=== PATIENT | female | born 1945 | race Two or more races ===

== ENCOUNTER 2023-02-01 22:55 | Inpatient (IN) | payer MEDICARE, OTHER ==
[~2023-02-01] VITALS: Ht 157.5 cm; Wt 47.2 kg
[~2023-02-01 22:55] MED LIST: ACET325T53 PO; ALBUT2 CONTNEB; AMIN887L PO; AMLO10TA4 PO; APIX5TAB PO; CHOL200013 PO; CYAN10006 IJ; DOCU-141 PO; FOLI0.4T6 PO; FURO-145 PO; HYDR-3980 PO; LATA2.5D15 EACHEYE; METO50TA16 PO; MIRT-90 PO; MULT-439 PO; NETA2.5D EACHEYE; PHEN100C4 PO; PILO15DR7 EACHEYE
[2023-02-01] MEDS ORDERED: ALBUTEROL FS 2.5 MG/0.5 ML VIAL.NEB NEB ONE (23:30)
[2023-02-01] MEDS ORDERED: ALBUTEROL FS 2.5 MG/0.5 ML VIAL.NEB ONE (23:56)
[2023-02-01 23:57] VITALS: O2SAT 91
[2023-02-02 00:07] VITALS: O2SAT 98
[2023-02-02] MEDS ORDERED: CEFTRIAXONE 1GM BAG (ER ONLY) 1 GM/50 ML PIGGYBACK IV ONE (01:30)
[2023-02-02] MEDS ORDERED: AZITHROMYCIN 500 MG in IV D5W 250 ML IV ONE (01:30)
[2023-02-02] MEDS ORDERED: AZITHROMYCIN 500 MG VIAL ONE ×2 (01:41→02:07)
[2023-02-02] MEDS ORDERED: CEFTRIAXONE 1GM BAG (ER ONLY) 50 ML IV ONE (01:41)
[2023-02-02 01:55] LABS: BASOPHILS # (AUTO) 0.1 K/uL (0.0-0.2); BASOPHILS % (AUTO) 0.5 % (0.0-2.0); EOSINOPHILS % (AUTO) 0.1 % (0.0-6.0); HEMATOCRIT 42 % (33-45); HEMOGLOBIN 14.3 g/dL (11.5-14.8); LYMPHOCYTES % (AUTO) 4.4 % (20.0-44.0); MEAN CORPUSCULAR HGB CONC 34 g/dl (31.0-36.0); MEAN CORPUSCULAR VOLUME 97 fL (82-100); MONOCYTES % (AUTO) 4.7 % (2.0-12.0); NEUTROPHILS # (AUTO) 19.8 K/uL (1.8-8.9); NEUTROPHILS % (AUTO) 90.3 % (43.0-81.0); PLATELET COUNT (AUTO) 524 K/uL (150-450); RED BLOOD CELL COUNT(AUTO) 4.38 MIL/uL (4.0-5.2); WHITE BLOOD COUNT (AUTO) 21.9 K/uL (4.3-11.0)
[2023-02-02 02:04] LABS: CALCIUM, SERUM 9.1 mg/dL (8.5-10.1); CARBON DIOXIDE 28 mmol/L (21-32); CHLORIDE 108 mmol/L (98-107); CREATININE 0.6 mg/dL (0.6-1.3); GLUCOSE 183 mg/dL (74-106); POTASSIUM 3.2 mmol/L (3.5-5.1); SODIUM SERUM 145 mmol/L (136-145); UREA NITROGEN, BLOOD 16 mg/dL (7-18)
[2023-02-02] MEDS ORDERED: ONDANSETRON HCL/PF 4 MG/2 ML VIAL IVP PRN (05:00)
[2023-02-02] MEDS ORDERED: ALBUTEROL FS 2.5 MG/0.5 ML VIAL.NEB NEB PRN (05:00)
[2023-02-02] MEDS ORDERED: ACETAMINOPHEN 325 MG TABLET PO PRN (05:00)
[2023-02-02] MEDS ORDERED: hydrALAZINE HCL IV 20 MG VIAL IV PRN (05:00)
[2023-02-02] MEDS ORDERED: MORPHINE SULFATE INJ 2 MG/ML DISP.SYRIN IV PRN (05:00)
[2023-02-02] MEDS ORDERED: IPRATROPIUM/ALBUTEROL INHALER IH SCH (06:00)
[2023-02-02] MEDS ORDERED: HEPARIN SODIUM, PORCINE 5000 UNITS/1 ML VIAL SQ SCH (09:00)
[2023-02-02] MEDS: PILOCARPINE 2% OPTH DROP 15 ML BOTTLE EACHEYE SCH ×2 (09:41→17:35)
[2023-02-02] MEDS: DOCUSATE SODIUM 100 MG CAPSULE PO SCH (09:55)
[2023-02-02] MEDS: FUROSEMIDE 20 MG TABLET PO SCH (09:57)
[2023-02-02] MEDS: METOPROLOL TARTRATE 50 MG TABLET PO SCH ×2 (09:57→16:27)
[2023-02-02] MEDS: AMLODIPINE BESYLATE 10 MG TABLET PO SCH (09:57)
[2023-02-02] MEDS: CEFEPIME 2 GM in IV D5W 100 ML IV SCH ×2 (10:24→21:41)
[2023-02-02] MEDS: POTASSIUM CHLORIDE 20 MEQ TAB.PRT.SR PO SCH ×2 (10:28→11:03)
[2023-02-02] MEDS: APIXABAN 5 MG TABLET PO SCH ×2 (11:08→16:32)
[2023-02-02] MEDS: IPRATROPIUM NEB FS 0.5 MG/2.5 ML AMPUL.NEB NEB SCH ×2 (13:30→19:56)
[2023-02-02] MEDS: ALBUTEROL FS 2.5 MG/0.5 ML VIAL.NEB NEB SCH ×2 (13:30→19:56)
[2023-02-02 16:00] VITALS: BP 128/67; TEMP 98.5; O2SAT 99
[2023-02-02 19:59] VITALS: O2SAT 93
[2023-02-02 20:00] VITALS: BP 131/70; TEMP 98; O2SAT 98
[2023-02-02 20:10] VITALS: O2SAT 98
[2023-02-02] MEDS ORDERED: VANCOMYCIN 1 GM in IV D5W 250ml IV ONE (21:00)
[2023-02-02] MEDS: LATANOPROST EYE DROP 0.005% 2.5 ML BOTTLE EACHEYE SCH (21:41)
[2023-02-02] MEDS: MIRTAZAPINE 15 MG TABLET PO SCH (21:41)
[2023-02-02] MEDS ORDERED: PHENYTOIN EXTENDED RELEASE 100 MG CAPSULE PO SCH (22:00)
[2023-02-02] MEDS: CLOTRIMAZOLE/BETAMETASONE DIPROPIONATE 15 GM TUBE TP SCH (22:00)
[2023-02-02] MEDS ORDERED: Medication Not On Formulary EA (Netarsudil Mesylate (Rhopressa) 1 DROP) EACHEYE SCH (22:00)
[2023-02-03] VITALS (13 sets, daily range): BP systolic 124–158; BP diastolic 64–78; TEMP 97.6–98.7; O2SAT 81–100
[2023-02-03] MEDS ORDERED: CEFTRIAXONE 1 G in IV D5W 50 ML IV SCH (01:00)
[2023-02-03] MEDS: ALBUTEROL FS 2.5 MG/0.5 ML VIAL.NEB NEB SCH ×4 (01:21→19:46)
[2023-02-03] MEDS: IPRATROPIUM NEB FS 0.5 MG/2.5 ML AMPUL.NEB NEB SCH ×4 (01:21→19:46)
[2023-02-03] MEDS ORDERED: AZITHROMYCIN 500 MG in IV D5W 250 ML IV SCH (02:00)
[2023-02-03 05:49] LABS: BASOPHILS # (AUTO) 0.1 K/uL (0.0-0.2); BASOPHILS % (AUTO) 0.2 % (0.0-2.0); HEMATOCRIT 43 % (33-45); HEMOGLOBIN 13.9 g/dL (11.5-14.8); LYMPHOCYTES # (AUTO) 1.8 K/uL (0.8-4.8); LYMPHOCYTES % (AUTO) 6.1 % (20.0-44.0); MEAN CORPUSCULAR HGB CONC 33 g/dl (31.0-36.0); MEAN CORPUSCULAR VOLUME 98 fL (82-100); MONOCYTES # (AUTO) 1.7 K/uL (0.1-1.30); MONOCYTES % (AUTO) 5.9 % (2.0-12.0); NEUTROPHILS # (AUTO) 25.2 K/uL (1.8-8.9); NEUTROPHILS % (AUTO) 87.8 % (43.0-81.0); PLATELET COUNT (AUTO) 452 K/uL (150-450); RED BLOOD CELL COUNT(AUTO) 4.32 MIL/uL (4.0-5.2); WHITE BLOOD COUNT (AUTO) 28.7 K/uL (4.3-11.0)
[2023-02-03 06:26] LABS: ALBUMIN 2.6 g/dL (3.4-5.0); BILIRUBIN,TOTAL 0.6 mg/dL (0.2-1.0); CALCIUM, SERUM 9.5 mg/dL (8.5-10.1); CREATININE 0.7 mg/dL (0.6-1.3); MAGNESIUM 2.2 mg/dL (1.8-2.4); POTASSIUM 3.4 mmol/L (3.5-5.1); TOTAL PROTEIN, SERUM 8.4 g/dL (6.4-8.2)
[2023-02-03] MEDS: PILOCARPINE 2% OPTH DROP 15 ML BOTTLE EACHEYE SCH ×2 (08:08→16:02)
[2023-02-03] MEDS: CEFEPIME 2 GM in IV D5W 100 ML IV SCH ×2 (08:09→20:12)
[2023-02-03] MEDS: FUROSEMIDE 20 MG TABLET PO SCH (09:00)
[2023-02-03] MEDS: APIXABAN 5 MG TABLET PO SCH (09:00)
[2023-02-03] MEDS: DOCUSATE SODIUM 100 MG CAPSULE PO SCH (09:00)
[2023-02-03] MEDS: AMLODIPINE BESYLATE 10 MG TABLET PO SCH (09:00)
[2023-02-03] MEDS: METOPROLOL TARTRATE 50 MG TABLET PO SCH ×2 (09:00→16:02)
[2023-02-03] MEDS: VANCOMYCIN 500 MG in IV D5W 100ml IV SCH ×2 (09:53→21:15)
[2023-02-03] MEDS: CLOTRIMAZOLE/BETAMETASONE DIPROPIONATE 15 GM TUBE TP SCH ×2 (09:53→16:02)
[2023-02-03 12:09] LABS: ABG BASE EXCESS 1.7 mmol/L; ABG OXYGEN SATURATION 98.5 % (92.0-98.5); ABG PCO2 38.3 mmHg (35.0-45.0); ABG PH 7.444 (7.350-7.450); ABG PO2 126.1 mmHg (75.0-100.0); AaDO2 259.6 mmHg; COHb 0.5 % (0.5-1.5); MetHb 0.4 % (0.0-1.5); O2Hb 97.6 % (94.0-97.0); SITE, ABG Right Radial
[2023-02-03] MEDS: POTASSIUM CL. PREMIX PERIPHER. 50 ML IV SCH ×2 (13:25→14:08)
[2023-02-03 13:56] LABS: BASOPHILS % (MANUAL) 0 % (0.0-2.0); EOSINOPHILS % (MANUAL) 1 % (0-4); LYMPHOCYTES % (MANUAL) 8 % (16-48); MONOCYTES % (MANUAL) 6 % (0-11.0); NEUTROPHILS % (MANUAL) 85 (42-76)
[2023-02-03] MEDS: ENOXAPARIN SODIUM 40 MG/0.4 ML DISP.SYRIN SQ SCH (14:57)
[2023-02-03] MEDS: LATANOPROST EYE DROP 0.005% 2.5 ML BOTTLE EACHEYE SCH (21:17)
[2023-02-03] MEDS: MIRTAZAPINE 15 MG TABLET PO SCH (21:17)
[2023-02-03] MEDS: IV D5/ 0.9% NACL 1,000 ML IV PRN (21:59)
[2023-02-04] VITALS (13 sets, daily range): BP systolic 133–153; BP diastolic 70–79; TEMP 97.4–98.5; O2SAT 96–100
[2023-02-04] MEDS: ALBUTEROL FS 2.5 MG/0.5 ML VIAL.NEB NEB SCH ×4 (01:55→20:37)
[2023-02-04] MEDS: IPRATROPIUM NEB FS 0.5 MG/2.5 ML AMPUL.NEB NEB SCH ×4 (01:55→20:37)
[2023-02-04] MEDS: ENOXAPARIN SODIUM 40 MG/0.4 ML DISP.SYRIN SQ SCH ×2 (03:29→14:47)
[2023-02-04] MEDS: DOCUSATE SODIUM 100 MG CAPSULE PO SCH (09:00)
[2023-02-04] MEDS: METOPROLOL TARTRATE 50 MG TABLET PO SCH ×2 (09:00→17:00)
[2023-02-04] MEDS: VANCOMYCIN 500 MG in IV D5W 100ml IV SCH (09:00)
[2023-02-04 09:07] LABS: BASOPHILS % (AUTO) 0.2 % (0.0-2.0); EOSINOPHILS % (AUTO) 0.5 % (0.0-6.0); HEMATOCRIT 43 % (33-45); HEMOGLOBIN 13.8 g/dL (11.5-14.8); LYMPHOCYTES # (AUTO) 1.6 K/uL (0.8-4.8); MEAN CORPUSCULAR HGB CONC 32 g/dl (31.0-36.0); MEAN CORPUSCULAR VOLUME 100 fL (82-100); MONOCYTES # (AUTO) 0.6 K/uL (0.1-1.30); MONOCYTES % (AUTO) 3.5 % (2.0-12.0); NEUTROPHILS # (AUTO) 15.5 K/uL (1.8-8.9); NEUTROPHILS % (AUTO) 86.8 % (43.0-81.0); PLATELET COUNT (AUTO) 394 K/uL (150-450); RED BLOOD CELL COUNT(AUTO) 4.28 MIL/uL (4.0-5.2); WHITE BLOOD COUNT (AUTO) 17.8 K/uL (4.3-11.0)
[2023-02-04] MEDS: CLOTRIMAZOLE/BETAMETASONE DIPROPIONATE 15 GM TUBE TP SCH ×2 (09:13→17:08)
[2023-02-04] MEDS: CEFEPIME 2 GM in IV D5W 100 ML IV SCH ×2 (09:13→21:10)
[2023-02-04 09:20] LABS: CALCIUM, SERUM 9.5 mg/dL (8.5-10.1); CREATININE 0.6 mg/dL (0.6-1.3)
[2023-02-04] MEDS: PILOCARPINE 2% OPTH DROP 15 ML BOTTLE EACHEYE SCH ×2 (09:23→17:08)
[2023-02-04] MEDS: IV D5/ 0.9% NACL 1,000 ML IV PRN (18:36)
[2023-02-04] MEDS: LATANOPROST EYE DROP 0.005% 2.5 ML BOTTLE EACHEYE SCH (21:11)
[2023-02-04] MEDS: MIRTAZAPINE 15 MG TABLET PO SCH (21:11)
[2023-02-05] VITALS (12 sets, daily range): BP systolic 141–154; BP diastolic 53–74; TEMP 97.5–97.9; O2SAT 95–100
[2023-02-05] MEDS: IPRATROPIUM NEB FS 0.5 MG/2.5 ML AMPUL.NEB NEB SCH ×4 (01:00→20:12)
[2023-02-05] MEDS: ALBUTEROL FS 2.5 MG/0.5 ML VIAL.NEB NEB SCH ×4 (01:00→20:12)
[2023-02-05] MEDS: ENOXAPARIN SODIUM 40 MG/0.4 ML DISP.SYRIN SQ SCH ×2 (02:48→14:52)
[2023-02-05] MEDS: VANCOMYCIN 500 MG in IV D5W 100ml IV SCH (08:00)
[2023-02-05] MEDS: METOPROLOL TARTRATE 50 MG TABLET PO SCH ×2 (08:08→17:00)
[2023-02-05] MEDS: DOCUSATE SODIUM 100 MG CAPSULE PO SCH (08:08)
[2023-02-05] MEDS: CLOTRIMAZOLE/BETAMETASONE DIPROPIONATE 15 GM TUBE TP SCH ×2 (08:09→17:03)
[2023-02-05] MEDS: PILOCARPINE 2% OPTH DROP 15 ML BOTTLE EACHEYE SCH ×2 (08:09→17:03)
[2023-02-05] MEDS: CEFEPIME 2 GM in IV D5W 100 ML IV SCH ×2 (09:09→20:13)
[2023-02-05 12:17] LABS: CALCIUM, SERUM 9.2 mg/dL (8.5-10.1); CARBON DIOXIDE 20 mmol/L (21-32); CHLORIDE 113 mmol/L (98-107); CREATININE 0.5 mg/dL (0.6-1.3); GLUCOSE 115 mg/dL (74-106); POTASSIUM 3.6 mmol/L (3.5-5.1); SODIUM SERUM 146 mmol/L (136-145); UREA NITROGEN, BLOOD 31 mg/dL (7-18)
[2023-02-05] MEDS: IV D5/ 0.9% NACL 1,000 ML IV PRN (15:23)
[2023-02-05] MEDS: MIRTAZAPINE 15 MG TABLET PO SCH (21:18)
[2023-02-05] MEDS: LATANOPROST EYE DROP 0.005% 2.5 ML BOTTLE EACHEYE SCH (21:18)
[2023-02-06] VITALS (12 sets, daily range): BP systolic 120–154; BP diastolic 51–74; TEMP 97.3–97.8; O2SAT 97–100
[2023-02-06] MEDS: IPRATROPIUM NEB FS 0.5 MG/2.5 ML AMPUL.NEB NEB SCH ×4 (01:49→20:09)
[2023-02-06] MEDS: ALBUTEROL FS 2.5 MG/0.5 ML VIAL.NEB NEB SCH ×4 (01:49→20:09)
[2023-02-06] MEDS: ENOXAPARIN SODIUM 40 MG/0.4 ML DISP.SYRIN SQ SCH ×2 (02:28→14:28)
[2023-02-06] MEDS: PILOCARPINE 2% OPTH DROP 15 ML BOTTLE EACHEYE SCH ×2 (08:33→16:28)
[2023-02-06] MEDS: VANCOMYCIN 500 MG in IV D5W 100ml IV SCH (08:34)
[2023-02-06] MEDS: CLOTRIMAZOLE/BETAMETASONE DIPROPIONATE 15 GM TUBE TP SCH ×2 (08:34→16:29)
[2023-02-06] MEDS: METOPROLOL TARTRATE 50 MG TABLET PO SCH ×2 (08:48→16:26)
[2023-02-06] MEDS: DOCUSATE SODIUM 100 MG CAPSULE PO SCH (08:48)
[2023-02-06 09:34] LABS: CALCIUM, SERUM 9.1 mg/dL (8.5-10.1); CARBON DIOXIDE 22 mmol/L (21-32); CHLORIDE 115 mmol/L (98-107); CREATININE 0.5 mg/dL (0.6-1.3); GLUCOSE 100 mg/dL (74-106); SODIUM SERUM 150 mmol/L (136-145); UREA NITROGEN, BLOOD 18 mg/dL (7-18)
[2023-02-06 09:36] LABS: POTASSIUM 2.6 mmol/L (3.5-5.1)
[2023-02-06] MEDS: CEFEPIME 2 GM in IV D5W 100 ML IV SCH ×2 (09:53→21:12)
[2023-02-06] MEDS: IV D5/ 0.9% NACL 1,000 ML IV PRN (15:59)
[2023-02-06] MEDS: POTASSIUM CL. PREMIX PERIPHER. 50 ML IV SCH ×6 (16:08→22:05)
[2023-02-06] MEDS: MIRTAZAPINE 15 MG TABLET PO SCH ×2 (22:00→22:10)
[2023-02-06] MEDS: LATANOPROST EYE DROP 0.005% 2.5 ML BOTTLE EACHEYE SCH (22:10)
[2023-02-07] VITALS (12 sets, daily range): BP systolic 104–139; BP diastolic 52–58; TEMP 97.6–98.4; O2SAT 95–100
[2023-02-07] MEDS: ALBUTEROL FS 2.5 MG/0.5 ML VIAL.NEB NEB SCH ×4 (02:14→20:09)
[2023-02-07] MEDS: IPRATROPIUM NEB FS 0.5 MG/2.5 ML AMPUL.NEB NEB SCH ×4 (02:15→20:09)
[2023-02-07] MEDS: ENOXAPARIN SODIUM 40 MG/0.4 ML DISP.SYRIN SQ SCH ×2 (03:07→15:45)
[2023-02-07 07:25] LABS: CALCIUM, SERUM 8.9 mg/dL (8.5-10.1); CARBON DIOXIDE 20 mmol/L (21-32); CHLORIDE 118 mmol/L (98-107); CREATININE 0.4 mg/dL (0.6-1.3); GLUCOSE 118 mg/dL (74-106); POTASSIUM 3.4 mmol/L (3.5-5.1); SODIUM SERUM 147 mmol/L (136-145); UREA NITROGEN, BLOOD 16 mg/dL (7-18)
[2023-02-07] MEDS: VANCOMYCIN 500 MG in IV D5W 100ml IV SCH (07:58)
[2023-02-07] MEDS: DOCUSATE SODIUM 100 MG CAPSULE PO SCH (08:21)
[2023-02-07] MEDS: METOPROLOL TARTRATE 50 MG TABLET PO SCH ×2 (09:00→17:00)
[2023-02-07] MEDS: CEFEPIME 2 GM in IV D5W 100 ML IV SCH ×2 (09:25→20:14)
[2023-02-07] MEDS: CLOTRIMAZOLE/BETAMETASONE DIPROPIONATE 15 GM TUBE TP SCH ×2 (09:29→17:06)
[2023-02-07] MEDS: PILOCARPINE 2% OPTH DROP 15 ML BOTTLE EACHEYE SCH ×2 (09:29→17:23)
[2023-02-07] MEDS ORDERED: IV D5W 1,000 ML IV SCH (10:00)
[2023-02-07] MEDS: POTASSIUM CL. PREMIX PERIPHER. 50 ML IV SCH ×4 (10:07→13:58)
[2023-02-07] MEDS ORDERED: POTASSIUM CL. PREMIX PERIPHER. 50 ML IV SCH (10:30)
[2023-02-07] MEDS: IV D5W 1,000 ML IV PRN (10:47)
[2023-02-07] MEDS: HYDROCORTISONE 1% CREAM 28.35 GM TUBE TP SCH ×2 (17:00→17:06)
[2023-02-07] MEDS: LATANOPROST EYE DROP 0.005% 2.5 ML BOTTLE EACHEYE SCH (22:59)
[2023-02-07] MEDS: MIRTAZAPINE 15 MG TABLET PO SCH (22:59)
[2023-02-08] VITALS (9 sets, daily range): BP systolic 111–119; BP diastolic 55–62; TEMP 97.3–98.8; O2SAT 96–100
[2023-02-08] MEDS: IPRATROPIUM NEB FS 0.5 MG/2.5 ML AMPUL.NEB NEB SCH ×3 (01:46→14:08)
[2023-02-08] MEDS: ALBUTEROL FS 2.5 MG/0.5 ML VIAL.NEB NEB SCH ×3 (01:46→14:08)
[2023-02-08] MEDS: IV D5W 1,000 ML IV PRN (02:53)
[2023-02-08] MEDS: ENOXAPARIN SODIUM 40 MG/0.4 ML DISP.SYRIN SQ SCH ×2 (03:14→16:26)
[2023-02-08] MEDS: CEFEPIME 2 GM in IV D5W 100 ML IV SCH (05:08)
[2023-02-08] MEDS ORDERED: POTASSIUM CHLORIDE 20 MEQ TAB.PRT.SR PO ONE (07:30)
[2023-02-08 08:28] LABS: BASOPHILS # (AUTO) 0.1 K/uL (0.0-0.2); BASOPHILS % (AUTO) 0.9 % (0.0-2.0); EOSINOPHILS % (AUTO) 3.7 % (0.0-6.0); HEMATOCRIT 34 % (33-45); HEMOGLOBIN 11.7 g/dL (11.5-14.8); LYMPHOCYTES # (AUTO) 1.8 K/uL (0.8-4.8); LYMPHOCYTES % (AUTO) 21.6 % (20.0-44.0); MEAN CORPUSCULAR HGB CONC 34 g/dl (31.0-36.0); MEAN CORPUSCULAR VOLUME 97 fL (82-100); MONOCYTES # (AUTO) 0.8 K/uL (0.1-1.30); MONOCYTES % (AUTO) 9.2 % (2.0-12.0); NEUTROPHILS # (AUTO) 5.3 K/uL (1.8-8.9); NEUTROPHILS % (AUTO) 64.6 % (43.0-81.0); PLATELET COUNT (AUTO) 311 K/uL (150-450); RED BLOOD CELL COUNT(AUTO) 3.54 MIL/uL (4.0-5.2); WHITE BLOOD COUNT (AUTO) 8.2 K/uL (4.3-11.0)
[2023-02-08 08:41] LABS: CALCIUM, SERUM 8.7 mg/dL (8.5-10.1); CARBON DIOXIDE 21 mmol/L (21-32); CHLORIDE 110 mmol/L (98-107); CREATININE 0.4 mg/dL (0.6-1.3); GLUCOSE 122 mg/dL (74-106); MAGNESIUM 1.7 mg/dL (1.8-2.4); PHOSPHORUS 1.8 mg/dL (2.5-4.9); POTASSIUM 2.9 mmol/L (3.5-5.1); SODIUM SERUM 141 mmol/L (136-145); UREA NITROGEN, BLOOD 14 mg/dL (7-18)
[2023-02-08] MEDS ORDERED: LEVO500T90 PO (08:56)
[2023-02-08] MEDS: PILOCARPINE 2% OPTH DROP 15 ML BOTTLE EACHEYE SCH ×2 (09:00→16:27)
[2023-02-08] MEDS ORDERED: MAGNESIUM OXIDE 400 MG TABLET PO ONE (09:00)
[2023-02-08] MEDS: VANCOMYCIN 500 MG in IV D5W 100ml IV SCH (09:40)
[2023-02-08] MEDS: POTASSIUM PHOSPHATE MM 7.5 MMOL in IV NS 0.9% 100 ML IV SCH ×2 (09:40→12:42)
[2023-02-08] MEDS: METOPROLOL TARTRATE 50 MG TABLET PO SCH ×2 (09:42→16:26)
[2023-02-08] MEDS: DOCUSATE SODIUM 100 MG CAPSULE PO SCH (09:43)
[2023-02-08] MEDS: HYDROCORTISONE 1% CREAM 28.35 GM TUBE TP SCH ×2 (09:44→16:27)
[2023-02-08] MEDS: CLOTRIMAZOLE/BETAMETASONE DIPROPIONATE 15 GM TUBE TP SCH ×2 (09:44→16:28)
[2023-02-08] MEDS ORDERED: LEVOFLOXACIN 500 MG /D5W 100ML 500 MG in PREMIX 1 EA IV SCH (10:00)
== END 2023-02-08 17:50 | DRG 177 ==
LOC: ER 23:01 → TELE1 02-02 07:55 → MEDSG1 02-03 10:03
PROVIDERS: ADMIT Internal Medicine; ATTEND Internal Medicine
PROC: 05H633Z Insertion of Infusion Device into Left Subclavian Vein, Percutaneous Approach (ICD-10-PCS; principal; 2023-02-04)
PROC: B547ZZA Ultrasonography of Left Subclavian Vein, Guidance (ICD-10-PCS; 2023-02-04)
DX: J69.0 Pneumonitis due to inhalation of food and vomit (principal); G93.41 Metabolic encephalopathy; J96.01 Acute respiratory failure with hypoxia; R53.2 Functional quadriplegia; I50.32 Chronic diastolic (congestive) heart failure; N39.0 Urinary tract infection, site not specified; D68.69 Other thrombophilia; F03.92 Unspecified dementia, unspecified severity, with psychotic disturbance; J44.0 Chronic obstructive pulmonary disease with (acute) lower respiratory infection; J15.6 Pneumonia due to other Gram-negative bacteria; K21.9 Gastro-esophageal reflux disease without esophagitis; I11.0 Hypertensive heart disease with heart failure; D75.839 Thrombocytosis, unspecified; E87.6 Hypokalemia; G40.909 Epilepsy, unspecified, not intractable, without status epilepticus; M24.561 Contracture, right knee; M24.562 Contracture, left knee; Z79.01 Long term (current) use of anticoagulants; Z86.718 Personal history of other venous thrombosis and embolism; F03.90 Unspecified dementia, unspecified severity, without behavioral disturbance, psychotic disturbance, mood disturbance, and anxiety; M19.90 Unspecified osteoarthritis, unspecified site; Z86.16 Personal history of COVID-19; H40.9 Unspecified glaucoma; T42.0X5A Adverse effect of hydantoin derivatives, initial encounter; Y92.89 Other specified places as the place of occurrence of the external cause; L89.890 Pressure ulcer of other site, unstageable; R21 Rash and other nonspecific skin eruption; Z87.01 Personal history of pneumonia (recurrent)
CPT/HCPCS: 36410; 36415; 36600; 70450-TC; 71045-TC; 80048-TC; 80053-TC; 80185-TC; 80202-TC; 82140-TC; 82803-TC; 83605-TC; 83735-TC; 84100-TC; 84484-TC; 85025-TC; 87040-TC; 87081-TC; 87086-TC; 92526; 92611-TC; 94762-TC; 94799-TC; A4216; A4223; G0378; J0456; J0692; J0696; J1650; J1956; J3370; J3480; J3490; J7030; J7042; J7050; J7060; J7070

== ENCOUNTER 2024-04-23 18:19 | Inpatient (IN) | payer MEDICARE, OTHER ==
[~2024-04-23] VITALS: Ht 152.4 cm; Wt 49.9 kg
[~2024-04-23 18:19] MED LIST changes: +CLOT15CR5 TP; +LEVO500T90 PO; +NEO/5DRO18 RIGHTEYE; +VANCOMYCIN 1 GM in IV D5W 250ml IV SCH
[2024-04-23 18:58] LABS: BASOPHILS # (AUTO) 0.1 K/uL (0.0-0.2); BASOPHILS % (AUTO) 0.6 % (0.0-2.0); EOSINOPHILS % (AUTO) 0.1 % (0.0-6.0); HEMATOCRIT 39 % (33-45); HEMOGLOBIN 12.4 g/dL (11.5-14.8); LYMPHOCYTES # (AUTO) 2.2 K/uL (0.8-4.8); LYMPHOCYTES % (AUTO) 15.5 % (20.0-44.0); MEAN CORPUSCULAR HEMOGLOBIN 27 PG (26.0-33.0); MEAN CORPUSCULAR HGB CONC 32 g/dl (31.0-36.0); MEAN CORPUSCULAR VOLUME 85 fL (82-100); MONOCYTES # (AUTO) 1.2 K/uL (0.1-1.30); MONOCYTES % (AUTO) 8.6 % (2.0-12.0); NEUTROPHILS # (AUTO) 10.8 K/uL (1.8-8.9); NEUTROPHILS % (AUTO) 75.2 % (43.0-81.0); PLATELET COUNT (AUTO) 435 K/uL (150-450); RED BLOOD CELL COUNT(AUTO) 4.61 MIL/uL (4.0-5.2); RED CELL DISTRIBUTION WIDTH 17.9 % (11.5-15.0); WHITE BLOOD COUNT (AUTO) 14.3 K/uL (4.3-11.0)
[2024-04-23] MEDS ORDERED: ACETAMINOPHEN 650 MG/SUPP.RECT RC ONE (18:58)
[2024-04-23] MEDS: ACETAMINOPHEN 650 MG/SUPP.RECT RC ONE (19:00)
[2024-04-23] MEDS: CEFEPIME 1 GM in IV D5W 50 ML IV ONE (19:00)
[2024-04-23] MEDS: IV LR 1000 ML 1,000 ML BAG IV ONE (19:00)
[2024-04-23] MEDS: VANCOMYCIN 1 GM in IV D5W 250 ML IV ONE (19:00)
[2024-04-23 19:08] LABS: CALCIUM, SERUM 9.2 mg/dL (8.5-10.1); CARBON DIOXIDE 32 mmol/L (21-32); CHLORIDE 112 mmol/L (98-107); GLUCOSE 238 mg/dL (74-106); POTASSIUM 3.5 mmol/L (3.5-5.1); SODIUM SERUM 154 mmol/L (136-145); UREA NITROGEN, BLOOD 26 mg/dL (7-18)
[2024-04-23 19:11] LABS: INR 1.25 (0.91-1.10); PARTIAL THROMBOPLASTIN TIME 25.9 SEC (24.3-34.3); PROTHROMBIN TIME 12.8 SECS (9.2-11.1)
[2024-04-23 19:14] LABS: ALANINE AMINOTRANSFERASE 30 U/L (12-78); ALCOHOL, BLOOD < 3 mg/dL (0-10); ALKALINE PHOSPHATASE 99 U/L (46-116); ASPARTATE AMINOTRANSFERASE 29 U/L (15-37); BILIRUBIN,DIRECT 0.3 mg/dL (0.0-0.2); BILIRUBIN,TOTAL 0.9 mg/dL (0.2-1.0)
[2024-04-23 19:15] LABS: ACETAMINOPHEN 0 ug/ml (10-30); SALICYLATE 2.2 mg/dL (2.8-20.0)
[2024-04-23 19:20] LABS: LACTIC ACID 2.9 mmol/L (0.4-2.0)
[2024-04-23] MEDS ORDERED: CEFEPIME 1 GM VIAL ONE (19:26)
[2024-04-23] MEDS ORDERED: LEVE100S PO (19:52)
[2024-04-23] MEDS ORDERED: BISA10SU11 RC (19:52)
[2024-04-23] MEDS ORDERED: MINE133E RC (19:52)
[2024-04-23] MEDS ORDERED: DEXT15DR23 EACHEYE (19:52)
[2024-04-23] MEDS ORDERED: NORT10CA PO (19:52)
[2024-04-23] MEDS ORDERED: ATOR40TA PO (19:52)
[2024-04-23] MEDS ORDERED: CYCL5TAB PO (19:52)
[2024-04-23] MEDS ORDERED: MAGN400O6 PO (19:52)
[2024-04-23] MEDS: IV NS 0.9% 500 ML BAG IV ONE (20:14)
[2024-04-23] MEDS ORDERED: IOHEXOL-350 100 ML VIAL IV ONE (20:50)
[2024-04-23] MEDS ORDERED: IV NS 0.9% 250 ML IV ONE (20:51)
[2024-04-23] MEDS ORDERED: ACETAMINOPHEN 650 MG/SUPP.RECT RC PRN (21:00)
[2024-04-23] MEDS ORDERED: Z GUARD REMEDY 4 OZ OINT TP PRN (21:00)
[2024-04-23] MEDS ORDERED: MAG HYDROX/AL HYDROX/SIMETH 30 ML UDC PO PRN (21:00)
[2024-04-23] MEDS ORDERED: CEFEPIME 1 GM in IV D5W 50 ML IV SCH (21:00)
[2024-04-23] MEDS ORDERED: ACETAMINOPHEN 325 MG TABLET PO PRN (21:00)
[2024-04-23] MEDS ORDERED: MAGNESIUM HYDROXIDE 30 ML UDC PO PRN (21:00)
[2024-04-23] MEDS ORDERED: ONDANSETRON HCL/PF 4 MG/2 ML VIAL IVP PRN (21:00)
[2024-04-23 21:30] VITALS: BP 132/66; TEMP 98.6; O2SAT 100
[2024-04-23] MEDS ORDERED: ALBUTEROL FS 2.5 MG/0.5 ML VIAL.NEB NEB PRN (21:30)
[2024-04-23 21:57] LABS: APPEARANCE,URINE Cloudy (CLEAR); BILIRUBIN,URINE Negative (NEGATIVE); BLOOD, URINE Large Ery/uL (NEGATIVE); COLOR,URINE YELLOW (YELLOW); KETONES,URINE Negative (NEGATIVE); LEUKOCYTE ESTERASE ,URINE Large (NEGATIVE); NITRITE, URINE Negative (NEGATIVE); PH,URINE 8.5 (5.0-8.0); PROTEIN,URINE 100 mg/dl (NEGATIVE); UGLUCOSE Negative (NEGATIVE); UROBILINOGEN,URINE 0.2 EU/dL (0.2)
[2024-04-23 22:09] LABS: AMPHETAMINE, URINE NEGATIVE (NEGATIVE); BARBITURATE, URINE NEGATIVE (NEGATIVE); BENZODIAZEPINE, URINE NEGATIVE (NEGATIVE); CANNABINOID, URINE NEGATIVE (NEGATIVE); COCCAINE, URINE NEGATIVE (NEGATIVE); OPIATE, URINE NEGATIVE (NEGATIVE); PHENCYCLIDINE SCREEN,URINE NEGATIVE (NEGATIVE)
[2024-04-23] MEDS ORDERED: LEVETIRACETAM (500MG) 500 MG/5 ML VIAL IV ONE (22:37)
[2024-04-23] MEDS: LEVETIRACETAM (500MG) 500 MG in IV NS 0.9% 100 ML IV SCH (22:54)
[2024-04-23 23:03] LABS: RBC,URINE 21-50 /HPF (0-2)
[2024-04-23 23:04] LABS: ADD URINE CULTURE YES; BACTERIA,URINE 3+ /HPF (None Seen); MUCUS,URINE Moderate /LPF (None Seen); WBC,URINE 51-80 /HPF (0-3)
[2024-04-24] VITALS: BP 131/71; TEMP 98.2; O2SAT 98
[2024-04-24 04:00] VITALS: BP 130/68; TEMP 98.1; O2SAT 99
[2024-04-24] MEDS ORDERED: CEFEPIME 1 GM in IV D5W 50 ML IV SCH (07:00)
[2024-04-24 08:00] VITALS: BP 132/65; TEMP 98.5; O2SAT 99
[2024-04-24 08:16] LABS: BASOPHILS # (AUTO) 0.1 K/uL (0.0-0.2); BASOPHILS % (AUTO) 0.7 % (0.0-2.0); EOSINOPHILS # (AUTO) 0.1 K/uL (0.0-0.7); EOSINOPHILS % (AUTO) 1.2 % (0.0-6.0); HEMATOCRIT 32 % (33-45); HEMOGLOBIN 10.2 g/dL (11.5-14.8); LYMPHOCYTES # (AUTO) 2.2 K/uL (0.8-4.8); LYMPHOCYTES % (AUTO) 18.2 % (20.0-44.0); MEAN CORPUSCULAR HEMOGLOBIN 27 PG (26.0-33.0); MEAN CORPUSCULAR HGB CONC 31 g/dl (31.0-36.0); MEAN CORPUSCULAR VOLUME 86 fL (82-100); MONOCYTES # (AUTO) 0.9 K/uL (0.1-1.30); MONOCYTES % (AUTO) 7.2 % (2.0-12.0); NEUTROPHILS # (AUTO) 8.8 K/uL (1.8-8.9); NEUTROPHILS % (AUTO) 72.7 % (43.0-81.0); PLATELET COUNT (AUTO) 323 K/uL (150-450); RED CELL DISTRIBUTION WIDTH 17.9 % (11.5-15.0); WHITE BLOOD COUNT (AUTO) 12.2 K/uL (4.3-11.0)
[2024-04-24 08:26] LABS: CALCIUM, SERUM 8.6 mg/dL (8.5-10.1); CARBON DIOXIDE 31 mmol/L (21-32); CREATININE 0.4 mg/dL (0.6-1.3); GLUCOSE 116 mg/dL (74-106); MAGNESIUM 2.5 mg/dL (1.8-2.4); UREA NITROGEN, BLOOD 16 mg/dL (7-18)
[2024-04-24] MEDS: PANTOPRAZOLE 40 MG VIAL IV SCH (08:29)
[2024-04-24] MEDS: CEFEPIME 1 GM in IV D5W 50 ML IV SCH (08:29)
[2024-04-24 09:10] LABS: CHLORIDE 120 mmol/L (98-107)
[2024-04-24 09:34] LABS: POTASSIUM 2.7 mmol/L (3.5-5.1); SODIUM SERUM 160 mmol/L (136-145)
[2024-04-24 09:49] LABS: THYROID STIMULATING HORMONE 1.21 uIU/mL (0.358-3.74)
[2024-04-24] MEDS ORDERED: IV D5W 1,000 ML IV ONE (10:30)
[2024-04-24] MEDS: IV D5W 1,000 ML IV ONE (10:44)
[2024-04-24] MEDS: POTASSIUM CHLORIDE 10 MEQ/50 ML PREMIXED IVPB FOR PERIPHERAL LINE IV SCH (11:30)
[2024-04-24 12:00] VITALS: BP 117/62; TEMP 98.6; O2SAT 98
[2024-04-24] MEDS: IV D5W 1,000 ML IV PRN (13:33)
[2024-04-24 14:41] LABS: CALCIUM, SERUM 8.5 mg/dL (8.5-10.1); CARBON DIOXIDE 29 mmol/L (21-32); CHLORIDE 115 mmol/L (98-107); CREATININE 0.6 mg/dL (0.6-1.3); GLUCOSE 110 mg/dL (74-106); SODIUM SERUM 151 mmol/L (136-145); UREA NITROGEN, BLOOD 15 mg/dL (7-18)
[2024-04-24 14:49] LABS: POTASSIUM 2.6 mmol/L (3.5-5.1)
[2024-04-24 16:00] VITALS: BP 104/54; TEMP 98.5; O2SAT 97
[2024-04-24] MEDS: VANCOMYCIN 1 GM in IV D5W 250ml IV SCH (17:23)
[2024-04-24 20:00] VITALS: BP 118/60; TEMP 98.4; O2SAT 99
[2024-04-24 20:46] LABS: CALCIUM, SERUM 8.3 mg/dL (8.5-10.1); CARBON DIOXIDE 29 mmol/L (21-32); CHLORIDE 115 mmol/L (98-107); CREATININE 0.5 mg/dL (0.6-1.3); GLUCOSE 120 mg/dL (74-106); POTASSIUM 3.8 mmol/L (3.5-5.1); SODIUM SERUM 148 mmol/L (136-145); UREA NITROGEN, BLOOD 13 mg/dL (7-18)
[2024-04-25] VITALS: BP 109/59; TEMP 98.2; O2SAT 100
[2024-04-25 04:00] VITALS: BP 115/57; TEMP 97.5; O2SAT 100
[2024-04-25 06:33] LABS: BASOPHILS # (AUTO) 0.1 K/uL (0.0-0.2); BASOPHILS % (AUTO) 0.7 % (0.0-2.0); EOSINOPHILS # (AUTO) 0.6 K/uL (0.0-0.7); EOSINOPHILS % (AUTO) 6.4 % (0.0-6.0); HEMATOCRIT 28 % (33-45); LYMPHOCYTES # (AUTO) 2.5 K/uL (0.8-4.8); LYMPHOCYTES % (AUTO) 28.3 % (20.0-44.0); MEAN CORPUSCULAR HEMOGLOBIN 28 PG (26.0-33.0); MEAN CORPUSCULAR HGB CONC 32 g/dl (31.0-36.0); MEAN CORPUSCULAR VOLUME 85 fL (82-100); MONOCYTES # (AUTO) 0.4 K/uL (0.1-1.30); NEUTROPHILS # (AUTO) 5.4 K/uL (1.8-8.9); NEUTROPHILS % (AUTO) 60.6 % (43.0-81.0); PLATELET COUNT (AUTO) 244 K/uL (150-450); RED BLOOD CELL COUNT(AUTO) 3.26 MIL/uL (4.0-5.2); RED CELL DISTRIBUTION WIDTH 17.3 % (11.5-15.0); WHITE BLOOD COUNT (AUTO) 8.8 K/uL (4.3-11.0)
[2024-04-25 06:36] LABS: CALCIUM, SERUM 8.5 mg/dL (8.5-10.1); CARBON DIOXIDE 33 mmol/L (21-32); CHLORIDE 110 mmol/L (98-107); CREATININE 0.5 mg/dL (0.6-1.3); GLUCOSE 89 mg/dL (74-106); POTASSIUM 3.1 mmol/L (3.5-5.1); SODIUM SERUM 146 mmol/L (136-145); UREA NITROGEN, BLOOD 10 mg/dL (7-18)
[2024-04-25 07:09] LABS: FOLIC ACID > 20.0 ng/mL (>3.0)
[2024-04-25 08:57] VITALS: BP 132/63; TEMP 97.5; O2SAT 98
[2024-04-25] MEDS: VANCOMYCIN 1 GM in IV D5W 250ml IV SCH (10:44)
[2024-04-25] MEDS ORDERED: POTASSIUM CHLORIDE 20 MEQ TAB.PRT.SR PO ONE (11:30)
[2024-04-25 12:15] VITALS: BP 115/58; TEMP 97.9; O2SAT 100
[2024-04-25] MEDS ORDERED: POTASSIUM CL. PREMIX PERIPHER. 50 ML IV SCH (12:30)
[2024-04-25] MEDS: POTASSIUM CL. PREMIX PERIPHER. 50 ML IV SCH (13:13)
[2024-04-25 16:38] VITALS: BP 110/54; TEMP 97.9; O2SAT 100
[2024-04-25 20:00] VITALS: BP 100/54; TEMP 97.3; O2SAT 99
[2024-04-25] MEDS: MICAFUNGIN SODIUM 100 MG in IV NS 0.9% 100 ML IV SCH (20:49)
[2024-04-26 04:00] VITALS: BP 118/64; TEMP 98.1; O2SAT 100
[2024-04-26 06:24] LABS: BASOPHILS # (AUTO) 0.1 K/uL (0.0-0.2); BASOPHILS % (AUTO) 1.2 % (0.0-2.0); EOSINOPHILS # (AUTO) 0.2 K/uL (0.0-0.7); HEMATOCRIT 29 % (33-45); HEMOGLOBIN 9.3 g/dL (11.5-14.8); LYMPHOCYTES # (AUTO) 1.3 K/uL (0.8-4.8); LYMPHOCYTES % (AUTO) 16.9 % (20.0-44.0); MEAN CORPUSCULAR HEMOGLOBIN 27 PG (26.0-33.0); MEAN CORPUSCULAR HGB CONC 32 g/dl (31.0-36.0); MEAN CORPUSCULAR VOLUME 86 fL (82-100); MONOCYTES # (AUTO) 0.3 K/uL (0.1-1.30); MONOCYTES % (AUTO) 3.6 % (2.0-12.0); NEUTROPHILS # (AUTO) 5.8 K/uL (1.8-8.9); NEUTROPHILS % (AUTO) 75.3 % (43.0-81.0); PLATELET COUNT (AUTO) 249 K/uL (150-450); RED BLOOD CELL COUNT(AUTO) 3.41 MIL/uL (4.0-5.2); RED CELL DISTRIBUTION WIDTH 16.9 % (11.5-15.0); WHITE BLOOD COUNT (AUTO) 7.7 K/uL (4.3-11.0)
[2024-04-26 06:42] LABS: CALCIUM, SERUM 8.7 mg/dL (8.5-10.1); CARBON DIOXIDE 22 mmol/L (21-32); CHLORIDE 108 mmol/L (98-107); CREATININE 0.3 mg/dL (0.6-1.3); GLUCOSE 99 mg/dL (74-106); SODIUM SERUM 144 mmol/L (136-145); UREA NITROGEN, BLOOD 5 mg/dL (7-18)
[2024-04-26 07:51] LABS: MAGNESIUM 2.1 mg/dL (1.8-2.4); PHOSPHORUS 2.6 mg/dL (2.5-4.9)
[2024-04-26 08:30] VITALS: BP 123/55; TEMP 98.3; O2SAT 100
[2024-04-26] MEDS: Potassium Chloride 20 MEQ in IV D5W 100 ML IV SCH (09:57)
[2024-04-26] MEDS ORDERED: Potassium Chloride 20 MEQ in IV D5W 100 ML IV SCH (10:00)
[2024-04-26 16:30] VITALS: BP 123/49; TEMP 98.2; O2SAT 98
[2024-04-26] MEDS: PILOCARPINE 2% OPTH DROP 15 ML BOTTLE EACHEYE SCH (17:51)
[2024-04-26 20:00] VITALS: BP 119/58; TEMP 98.3
[2024-04-26] MEDS: EYE EACHEYE SCH (21:38)
[2024-04-26] MEDS: RHOPRESSA 0.02% EACHEYE SCH (21:38)
[2024-04-26] MEDS: LATANOPROST EYE DROP 0.005% 2.5 ML BOTTLE EACHEYE SCH (21:39)
[2024-04-27 04:00] VITALS: BP 121/56; TEMP 98.5; O2SAT 98
[2024-04-27 08:00] VITALS: BP 162/72; TEMP 98.1; O2SAT 100
[2024-04-27] MEDS: FOLIC ACID 1 MG TABLET PO SCH (09:00)
[2024-04-27] MEDS: MULTIVIT W/MINERALS 1 TAB TABLET PO SCH (09:00)
[2024-04-27 12:17] LABS: CALCIUM, SERUM 8.7 mg/dL (8.5-10.1); CARBON DIOXIDE 19 mmol/L (21-32); CHLORIDE 110 mmol/L (98-107); CREATININE 0.4 mg/dL (0.6-1.3); GLUCOSE 98 mg/dL (74-106); SODIUM SERUM 145 mmol/L (136-145); UREA NITROGEN, BLOOD 2 mg/dL (7-18)
[2024-04-27 12:23] LABS: POTASSIUM 2.7 mmol/L (3.5-5.1)
[2024-04-27] MEDS: POTASSIUM CL. PREMIX PERIPHER. 50 ML IV SCH (14:01)
[2024-04-27 16:00] VITALS: BP 139/65; TEMP 98.5; O2SAT 96
[2024-04-27] MEDS: ENSURE ENLIVE 237 ML LIQUID (VANILLA) PO SCH (16:58)
[2024-04-27] MEDS: POTASSIUM CHLORIDE 20 MEQ POWDER PACKET PO ONE (18:14)
[2024-04-27 20:00] VITALS: BP 131/67; TEMP 98.3; O2SAT 95
[2024-04-27] MEDS: CEFEPIME 2 GM in IV D5W 100 ML IV SCH (20:36)
[2024-04-27] MEDS: VANCOMYCIN 500 MG in IV D5W 100ml IV SCH (23:01)
[2024-04-27 23:02] LABS: CALCIUM, SERUM 8.5 mg/dL (8.5-10.1); CARBON DIOXIDE 27 mmol/L (21-32); CHLORIDE 114 mmol/L (98-107); CREATININE 0.3 mg/dL (0.6-1.3); GLUCOSE 119 mg/dL (74-106); POTASSIUM 4.2 mmol/L (3.5-5.1); SODIUM SERUM 145 mmol/L (136-145); UREA NITROGEN, BLOOD 6 mg/dL (7-18)
[2024-04-28 04:00] VITALS: BP 130/59; TEMP 98.1; O2SAT 100
[2024-04-28 06:02] LABS: BASOPHILS # (AUTO) 0.1 K/uL (0.0-0.2); BASOPHILS % (AUTO) 0.8 % (0.0-2.0); EOSINOPHILS # (AUTO) 0.3 K/uL (0.0-0.7); EOSINOPHILS % (AUTO) 4.4 % (0.0-6.0); HEMATOCRIT 26 % (33-45); HEMOGLOBIN 8.6 g/dL (11.5-14.8); LYMPHOCYTES # (AUTO) 1.8 K/uL (0.8-4.8); LYMPHOCYTES % (AUTO) 27.9 % (20.0-44.0); MEAN CORPUSCULAR HEMOGLOBIN 28 PG (26.0-33.0); MEAN CORPUSCULAR HGB CONC 33 g/dl (31.0-36.0); MEAN CORPUSCULAR VOLUME 85 fL (82-100); MONOCYTES # (AUTO) 0.5 K/uL (0.1-1.30); MONOCYTES % (AUTO) 8.1 % (2.0-12.0); NEUTROPHILS # (AUTO) 3.7 K/uL (1.8-8.9); NEUTROPHILS % (AUTO) 58.8 % (43.0-81.0); PLATELET COUNT (AUTO) 259 K/uL (150-450); RED BLOOD CELL COUNT(AUTO) 3.12 MIL/uL (4.0-5.2); RED CELL DISTRIBUTION WIDTH 16.5 % (11.5-15.0); WHITE BLOOD COUNT (AUTO) 6.3 K/uL (4.3-11.0)
[2024-04-28 06:18] LABS: CALCIUM, SERUM 8.4 mg/dL (8.5-10.1); CARBON DIOXIDE 22 mmol/L (21-32); CHLORIDE 109 mmol/L (98-107); CREATININE 0.3 mg/dL (0.6-1.3); GLUCOSE 96 mg/dL (74-106); PHOSPHORUS 2.3 mg/dL (2.5-4.9); POTASSIUM 3.9 mmol/L (3.5-5.1); SODIUM SERUM 142 mmol/L (136-145); UREA NITROGEN, BLOOD 5 mg/dL (7-18)
[2024-04-28 08:00] VITALS: BP 150/63; TEMP 97; O2SAT 100
[2024-04-28] MEDS: PANTOPRAZOLE 40 MG TABLET.DR PO SCH (08:24)
[2024-04-28] MEDS: NORTRIPTYLINE HCL 10 MG CAPSULE PO SCH (08:24)
[2024-04-28 16:00] VITALS: BP 136/62; TEMP 98.3; O2SAT 96
[2024-04-28] MEDS: K PHOS NEUTRAL 250 MG TABLET PO ONE (16:08)
[2024-04-28 20:00] VITALS: BP 135/56; TEMP 97.9; O2SAT 100
[2024-04-28] MEDS ORDERED: VANCOMYCIN 500 MG in IV D5W 100ml IV SCH (23:00)
[2024-04-29 04:00] VITALS: BP 130/56; TEMP 97.6; O2SAT 97
[2024-04-29 07:01] LABS: BASOPHILS # (AUTO) 0.1 K/uL (0.0-0.2); BASOPHILS % (AUTO) 0.9 % (0.0-2.0); EOSINOPHILS # (AUTO) 0.3 K/uL (0.0-0.7); HEMATOCRIT 28 % (33-45); LYMPHOCYTES # (AUTO) 1.9 K/uL (0.8-4.8); LYMPHOCYTES % (AUTO) 30.6 % (20.0-44.0); MEAN CORPUSCULAR HEMOGLOBIN 27 PG (26.0-33.0); MEAN CORPUSCULAR HGB CONC 32 g/dl (31.0-36.0); MEAN CORPUSCULAR VOLUME 85 fL (82-100); MONOCYTES # (AUTO) 0.5 K/uL (0.1-1.30); MONOCYTES % (AUTO) 8.3 % (2.0-12.0); NEUTROPHILS # (AUTO) 3.4 K/uL (1.8-8.9); NEUTROPHILS % (AUTO) 55.2 % (43.0-81.0); PLATELET COUNT (AUTO) 294 K/uL (150-450); RED BLOOD CELL COUNT(AUTO) 3.31 MIL/uL (4.0-5.2); RED CELL DISTRIBUTION WIDTH 16.6 % (11.5-15.0); WHITE BLOOD COUNT (AUTO) 6.1 K/uL (4.3-11.0)
[2024-04-29 08:00] VITALS: BP 150/92; TEMP 98.4; O2SAT 93
[2024-04-29 08:47] LABS: CARBON DIOXIDE 23 mmol/L (21-32); CHLORIDE 107 mmol/L (98-107); CREATININE 0.4 mg/dL (0.6-1.3); GLUCOSE 88 mg/dL (74-106); MAGNESIUM 2.2 mg/dL (1.8-2.4); PHOSPHORUS 3.2 mg/dL (2.5-4.9); POTASSIUM 3.1 mmol/L (3.5-5.1); SODIUM SERUM 142 mmol/L (136-145); UREA NITROGEN, BLOOD 5 mg/dL (7-18)
[2024-04-29] MEDS ORDERED: GADOTERATE MEGLUMINE 5 MMOL/10 ML VIAL IV ONE (11:30)
[2024-04-29] MEDS: POTASSIUM CHLORIDE 20 MEQ TAB.PRT.SR PO SCH (11:34)
[2024-04-29 16:00] VITALS: BP 153/80; TEMP 97.9; O2SAT 97
[2024-04-29 19:48] VITALS: O2SAT 97
[2024-04-29 20:00] VITALS: BP 134/117; TEMP 98.6; O2SAT 99
[2024-04-29] MEDS: VANCOMYCIN 1 GM in IV D5W 250 ML IV ONE (21:40)
[2024-04-30 04:00] VITALS: BP 146/78; TEMP 98.6; O2SAT 100
[2024-04-30 07:13] LABS: BASOPHILS % (AUTO) 0.8 % (0.0-2.0); EOSINOPHILS # (AUTO) 0.3 K/uL (0.0-0.7); EOSINOPHILS % (AUTO) 4.8 % (0.0-6.0); HEMATOCRIT 26 % (33-45); HEMOGLOBIN 8.4 g/dL (11.5-14.8); LYMPHOCYTES # (AUTO) 1.8 K/uL (0.8-4.8); LYMPHOCYTES % (AUTO) 29.4 % (20.0-44.0); MEAN CORPUSCULAR HEMOGLOBIN 27 PG (26.0-33.0); MEAN CORPUSCULAR HGB CONC 32 g/dl (31.0-36.0); MEAN CORPUSCULAR VOLUME 85 fL (82-100); MONOCYTES # (AUTO) 0.5 K/uL (0.1-1.30); MONOCYTES % (AUTO) 8.8 % (2.0-12.0); NEUTROPHILS # (AUTO) 3.5 K/uL (1.8-8.9); NEUTROPHILS % (AUTO) 56.2 % (43.0-81.0); PLATELET COUNT (AUTO) 298 K/uL (150-450); RED BLOOD CELL COUNT(AUTO) 3.07 MIL/uL (4.0-5.2); RED CELL DISTRIBUTION WIDTH 16.6 % (11.5-15.0); WHITE BLOOD COUNT (AUTO) 6.2 K/uL (4.3-11.0)
[2024-04-30 07:41] LABS: CALCIUM, SERUM 8.8 mg/dL (8.5-10.1); CARBON DIOXIDE 23 mmol/L (21-32); CHLORIDE 106 mmol/L (98-107); CREATININE 0.4 mg/dL (0.6-1.3); GLUCOSE 96 mg/dL (74-106); MAGNESIUM 2.3 mg/dL (1.8-2.4); POTASSIUM 3.1 mmol/L (3.5-5.1); SODIUM SERUM 139 mmol/L (136-145); UREA NITROGEN, BLOOD 7 mg/dL (7-18)
[2024-04-30 08:00] VITALS: BP 146/82; TEMP 98; O2SAT 100
[2024-04-30] MEDS: VANCOMYCIN 500 MG in IV D5W 100 ML IV SCH (09:32)
[2024-04-30] MEDS: POTASSIUM CHLORIDE 20 MEQ TAB.PRT.SR PO ONE (09:58)
[2024-05-01 03:08] LABS: METHYLMALONIC ACID 421 nmol/L (0-378)
== END 2024-04-30 15:46 | disposition short-term general hospital (02) | DRG 871 ==
LOC: ER 18:19 → TELE1 20:11 → MEDSG1 04-25 11:04
PROVIDERS: ATTEND Internal Medicine
DX: A41.9 Sepsis, unspecified organism (principal); E43 Unspecified severe protein-calorie malnutrition; G93.41 Metabolic encephalopathy; J15.9 Unspecified bacterial pneumonia; J15.69 Pneumonia due to other Gram-negative bacteria; G06.0 Intracranial abscess and granuloma; I50.32 Chronic diastolic (congestive) heart failure; N39.0 Urinary tract infection, site not specified; N17.9 Acute kidney failure, unspecified; I69.354 Hemiplegia and hemiparesis following cerebral infarction affecting left non-dominant side; D68.69 Other thrombophilia; J44.0 Chronic obstructive pulmonary disease with (acute) lower respiratory infection; E87.0 Hyperosmolality and hypernatremia; D64.9 Anemia, unspecified; I11.0 Hypertensive heart disease with heart failure; L30.4 Erythema intertrigo; R13.10 Dysphagia, unspecified; Z74.01 Bed confinement status; E86.0 Dehydration; Z20.822 Contact with and (suspected) exposure to COVID-19; F01.50 Vascular dementia, unspecified severity, without behavioral disturbance, psychotic disturbance, mood disturbance, and anxiety; E88.09 Other disorders of plasma-protein metabolism, not elsewhere classified; E87.6 Hypokalemia; E78.5 Hyperlipidemia, unspecified; J44.9 Chronic obstructive pulmonary disease, unspecified; M89.8X9 Other specified disorders of bone, unspecified site; Z86.79 Personal history of other diseases of the circulatory system; G93.89 Other specified disorders of brain; R65.20 Severe sepsis without septic shock; Z86.69 Personal history of other diseases of the nervous system and sense organs; Z68.21 Body mass index [BMI] 21.0-21.9, adult
CPT/HCPCS: 36415; 70450-TC; 70496-TC; 70498-TC; 70553-TC; 71045-TC; 80048-TC; 80076-TC; 80202-TC; 81001; 82607-TC; 83605-TC; 83735-TC; 83921; 84100-TC; 84425; 84443-TC; 84484-TC; 85025-TC; 85730-TC; 87040-TC; 87081-TC; 87086-TC; 92526; 92611-TC; 93307-TC; 94799-TC; A4223; A9575; G0378; G0480; J0692; J1953; J2248; J2470; J3370; J3480; J7030; J7042; J7050; J7060; J7070; J7120; Q9967